=== PATIENT | female | born 1990 ===

== ENCOUNTER 2017-05-03 14:11 | Emergency (ER) | payer OTHER ==
[2017-05-03 14:29] VITALS: BP 114/66; PULSE 99; TEMP 99; BMI 29.7
[2017-05-03] MEDS ORDERED: DEXAMETHASONE LIQUID 0.5 MG/5 ML 240 ML BULK BOTTLE PO ONE (14:34)
[2017-05-03] MEDS ORDERED: DEXAMETHASONE SOD PHOSPHATE 10 MG/1 ML VIAL ONE (14:38)
--- NOTE | 2017-05-03 14:42 | PDOC ---
History of Present Illness - General Chief Complaint: Sore Throat Stated Complaint: SORETHROAT Time Seen by Provider: 05/03/17 14:34 History Source: Patient Exam Limitations: No Limitations - History of Present Illness Initial Comments: 05/03/17 14:49 MY CHIEF COMPLAINT: SORE THROAT RADIATES TO RT. EAR FOR 3 DAYS, FEVER TODAY History of Present illness: Patient is a 26-year-old female with no significant medical history here today complaining of a sore throat that radiates to her right ear 3 days with fever today. Patient denies any excessive drooling or difficulty breathing or swallowing. Patient took ibuprofen approximately 4 hours ago helped with the pain and fever. Timing/Duration: getting worse Severity: moderate Associated Symptoms: reports: fever/chills (today), other (sore throat today ) Past History - Past Medical History Allergies/Adverse Reactions: Allergies Allergy/AdvReac Type Severity Reaction Status Date / Time No Known Allergies Allergy Verified 05/03/17 14:15 Home Medications: Ambulatory Orders Ondansetron [Zofran Odt -] 4 mg SL BID PRN #10 od.tablet 12/10/14 Suicide Attempt (Hx): No Other medical history: NONE - Reproductive History Cervical CA: No Dysfunctional Uterine Bleeding: No Ectopic : No Endometrial CA: No Polycystic Ovaries: No Therapeutic (s) & number: No Tubal Ligation: No - Immunization History Immunization Up to Date: Yes - Psycho/Social/Smoking Cessation Hx Anxiety: No Suicidal Ideation: No Smoking History: Never smoked Hx Alcohol Use: No Drug/Substance Use Hx: No Substance Use Type: None Review of Systems - Review of Systems Able to Perform ROS?: Yes Constitutional: Yes: Fever (today ) HEENTM: Yes: Ear Pain (rt. ear), Throat Pain (radiates to rt. ear) Respiratory: No: Symptoms reported Cardiac (ROS): No: Symptoms Reported ABD/GI: No: Symptoms Reported : No: Symptoms Reported Musculoskeletal: No: Symptoms Reported Integumentary: No: Symptoms Reported *Physical Exam - Vital Signs Last Vital Signs Temp Pulse Resp BP Pulse Ox 99.0 F 99 H 20 114/66 96 05/03/17 14:12 05/03/17 14:12 05/03/17 14:12 05/03/17 14:12 05/03/17 14:12 - Physical Exam General Appearance: Yes: Appropriately Dressed HEENT: positive: TMs Normal, Pharyngeal Erythema, Tonsillar Exudate (right), Tonsillar Erythema (b/l rt. > than left with no uvular deviation ). negative: Excessive drooling Neck: positive: Lymphadenopathy (R), Lymphadenopathy (L) Respiratory/Chest: positive: Lungs Clear, Normal Breath Sounds. negative: Chest Tender, Respiratory Distress Cardiovascular: positive: Regular Rhythm, Regular Rate, S1, S2 Integumentary: positive: Normal Color Neurologic: positive: Fully Oriented, Alert, Normal Response, Responsive Medical Decision Making - Medical Decision Making 05/03/17 15:01 Patient is a 26-year-old female with no significant medical history here today complaining of a sore throat that radiates to her right ear 3 days with fever today. Patient denies any excessive drooling or difficulty breathing or swallowing. Patient took ibuprofen approximately 4 hours ago helped with the pain and fever. Rule out strep tonsillitis Plan: Throat C&S rapid + for beta hemolytic strep group A decadron 10 mg by mouth now bicillin LA 1.2 million units IM now 05/03/17 15:02 05/03/17 15:02 05/03/17 15:10 *DC/Admit/Observation/Transfer Diagnosis at time of Disposition: Streptococcal tonsillitis - Discharge Dispostion Disposition: HOME Condition at time of disposition: Stable - Referrals Referrals: STAFF,NOT ON [Primary Care Provider] - - Patient Instructions Additional Instructions: DRink A lot a fluids and rest throw out toothbrush get new one within the next 2 days Return to emergency room if symptoms worsen any difficulty swallowing or breathing take ibuprofen as needed 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
[2017-05-03] MEDS ORDERED: PENICILLIN G BENZATHINE 1,200,000 UNIT/2 ML PFS IM ONE (15:09)
[2017-05-03] MEDS ORDERED: PENICILLIN G BENZATHINE 2,400,000 UNIT/4 ML PFS ONE (15:11)
== END 2017-05-03 15:30 | disposition home or self-care (01) ==
LOC: JERFT 14:11 → JER 14:11 → JERFT 15:30
DX: J02.0 Streptococcal pharyngitis (principal); B95.0 Streptococcus, group A, as the cause of diseases classified elsewhere
CPT/HCPCS: 87070; 87430; 96372; 99281-25